=== PATIENT | male | born 1985 | race African-American/Black ===

== ENCOUNTER 2017-07-06 18:01 | Emergency (ER) | payer OTHER ==
[~2017-07-06] VITALS: Ht 188 cm; Wt 65.8 kg
[~2017-07-06 18:01] MED LIST: IBUPROFEN 800800 M1 PO; NORCO 5-325 TA1 EACH PO
[2017-07-06] MEDS ORDERED: AMOXICILLIN 50500 MG PO (18:19)
[2017-07-06 18:28] VITALS: BP 116/64
== END 2017-07-06 18:32 | disposition home or self-care (01) ==
LOC: ER 18:01
DX: K04.7 Periapical abscess without sinus (principal); K05.30 Chronic periodontitis, unspecified; F17.210 Nicotine dependence, cigarettes, uncomplicated